=== PATIENT | female | born 1985 | race Caucasian/White ===

== ENCOUNTER 2018-11-13 14:41 | Emergency (ER) | payer OTHER ==
[~2018-11-13] VITALS: Ht 154.9 cm; Wt 98.9 kg
[2018-11-13 14:50] VITALS: Ht 154.9 cm; Wt 98.9 kg
[2018-11-13 16:53] VITALS: BP 129/79
== END 2018-11-13 16:53 | disposition home or self-care (01) ==
LOC: ED 14:41
DX: J06.9 Acute upper respiratory infection, unspecified (principal)
CPT/HCPCS: J7613; Q0092

== ENCOUNTER 2018-12-21 16:32 | Emergency (ER) | payer OTHER ==
[~2018-12-21] VITALS: Ht 152.4 cm; Wt 97.5 kg
[2018-12-21 16:42] VITALS: BP 158/95; Ht 152.4 cm; Wt 97.5 kg
== END 2018-12-21 17:28 | disposition home or self-care (01) ==
LOC: ED 16:32
DX: S92.352A Displaced fracture of fifth metatarsal bone, left foot, initial encounter for closed fracture (principal); X50.1XXA Overexertion from prolonged static or awkward postures, initial encounter; Y93.89 Activity, other specified; Y92.89 Other specified places as the place of occurrence of the external cause; Y99.8 Other external cause status
CPT/HCPCS: Q0092

== ENCOUNTER 2019-09-01 13:07 | Emergency (ER) | payer OTHER ==
[~2019-09-01] VITALS: Ht 154.9 cm; Wt 98.0 kg
[2019-09-01 14:22] VITALS: BP 107/77; Ht 154.9 cm; Wt 98.0 kg
== END 2019-09-01 15:29 | disposition left against medical advice (07) ==
LOC: ED 13:07
DX: Z53.21 Procedure and treatment not carried out due to patient leaving prior to being seen by health care provider (principal)

== ENCOUNTER 2019-11-17 10:23 | Emergency (ER) | payer SELFPAY ==
[~2019-11-17] VITALS: Ht 154.9 cm; Wt 100.2 kg
[2019-11-17 10:26] VITALS: Ht 154.9 cm; Wt 100.2 kg
[2019-11-17 11:24] LABS: BASOPHIL % 0.7 % (0-2); PLATELET COUNT 243 x10^3mcL (130-400); RED CELL DISTRIBUTION WIDTH 12.9 % (11.5-14.5)
[2019-11-17 11:46] LABS: CALCIUM 8.9 mg/dL (8.5-10.1); CHLORIDE SERUM 104 mmol/L (98-107); CREATININE SERUM 0.8 mg/dL (0.6-1.0); GFR1 > 60 mL/min; GLUCOSE SERUM 76 mg/dL (74-106); POTASSIUM SERUM 3.9 mmol/L (3.5-5.1); SODIUM SERUM 139 mmol/L (136-145)
[2019-11-17 11:50] LABS: ALBUMIN 3.7 g/dL (3.4-5.0); ALKALINE PHOSPHATASE 68 U/L (46-116); ALT/SGPT 30 U/L (14-59); AST/SGOT 18 U/L (15-37); BILIRUBIN TOTAL 0.5 mg/dL (0.20-1.00); TOTAL PROTEIN, SERUM 8.1 g/dL (6.4-8.2)
[2019-11-17 12:17] VITALS: BP 110/61
== END 2019-11-17 12:17 | disposition home or self-care (01) ==
LOC: ED 10:23
DX: R19.7 Diarrhea, unspecified (principal); R11.0 Nausea; R10.30 Lower abdominal pain, unspecified; E03.9 Hypothyroidism, unspecified; E66.9 Obesity, unspecified; Z68.41 Body mass index [BMI] 40.0-44.9, adult
CPT/HCPCS: 36415; Q0162

== ENCOUNTER 2019-12-19 12:04 | Emergency (ER) | payer SELFPAY ==
[~2019-12-19] VITALS: Ht 154.9 cm; Wt 101.6 kg
[2019-12-19 12:37] VITALS: BP 101/78; Ht 154.9 cm; Wt 101.6 kg
== END 2019-12-19 13:32 | disposition home or self-care (01) ==
LOC: ED 12:04
DX: J32.9 Chronic sinusitis, unspecified (principal); Z90.49 Acquired absence of other specified parts of digestive tract

== ENCOUNTER 2020-04-29 13:49 | Emergency (ER) | payer OTHER ==
[~2020-04-29] VITALS: Ht 154.9 cm; Wt 108.9 kg
[2020-04-29 13:53] VITALS: Ht 154.9 cm; Wt 108.9 kg
[2020-04-29 15:22] LABS: UA SPECIFIC GRAVITY 1.025 (1.005-1.035); microscopic required? YES; urine erythrocyte TRACE (NEGATIVE)
[2020-04-29 15:26] LABS: BASOPHIL % 0.4 % (0-2); PLATELET COUNT 246 x10^3mcL (130-400); RED CELL DISTRIBUTION WIDTH 13.2 % (11.5-14.5)
[2020-04-29 16:02] LABS: CALCIUM 8.9 mg/dL (8.5-10.1); CARBON DIOXIDE 25.9 mmol/L (21-32); CHLORIDE SERUM 102 mmol/L (98-107); CREATININE SERUM 0.8 mg/dL (0.6-1.0); GFR1 > 60 mL/min; GLUCOSE SERUM 99 mg/dL (74-106); POTASSIUM SERUM 3.7 mmol/L (3.5-5.1); SODIUM SERUM 139 mmol/L (136-145)
[2020-04-29 16:06] LABS: ALKALINE PHOSPHATASE 73 U/L (46-116); ALT/SGPT 51 U/L (14-59); AST/SGOT 24 U/L (15-37); BILIRUBIN TOTAL 0.2 mg/dL (0.20-1.00); LIPASE 117 IU/L (73-393); TOTAL PROTEIN, SERUM 7.9 g/dL (6.4-8.2)
[2020-04-29 16:09] LABS: ALBUMIN 3.2 g/dL (3.4-5.0)
[2020-04-29 17:42] VITALS: BP 98/64
== END 2020-04-29 17:42 | disposition home or self-care (01) ==
LOC: ED 13:49
PROVIDERS: Emergency Medicine
DX: O23.41 Unspecified infection of urinary tract in pregnancy, first trimester (principal); Z3A.08 8 weeks gestation of pregnancy
CPT/HCPCS: J2765; J3490; J7030; Q0092